=== PATIENT | female | born 1995 | race Caucasian/White ===

== ENCOUNTER 2016-09-29 13:52 | Emergency (ER) | payer OTHER ==
[~2016-09-29] VITALS: Ht 157.5 cm; Wt 52.0 kg
[~2016-09-29 13:52] MED LIST: OMEP10CA2 PO; PREN1TAB49 PO
[2016-09-29 13:55] VITALS: Ht 157.5 cm; Wt 52.0 kg
--- NOTE | 2016-09-29 14:48 | ERD ---
ER Documentation Chief Complaint Date/Time DATE: 09/29/16 TIME: 14:30 Chief Complaint LEFT BREAST PAIN X 1 MONTH HPI 21-year-old female who presents to the emergency department with a primary complaint of right breast pain for about a month and left breast pain for about 2 weeks. She also complains of rashes the right breast with itchiness. Denies headache, loss of consciousness, dizziness, blurry vision, changes in vision, photophobia, facial pain, ear pain, throat pain, difficulty swallowing, neck pain, shoulder pain, chest pain, cough, hemoptysis, abdominal pain, back pain, loss of appetite, nausea, vomiting, hematochezia, diarrhea, constipation, urinary symptoms, , the possibility of being , bladder and bowel incontinences, extremity weakness, extremity tenderness, numbness or tingling sensation, difficulty walking, recent travel, recent exposure to illness, recent antibiotic use in the last 3 months, fever, chills. Allergy: No known drug allergies. PMH: No past medical history. Family medical history: Denies. AO LMP: September 25, 2016. Medications: Denies. Surgery: Left retinal detachment surgery. Primary Social History: store operations associate. Denies smoking, use of alcohol, use of illegal drugs. ROS All systems reviewed and are negative except as per history of present illness. Medications Home Meds Active Scripts Omeprazole* (Prilosec*) 10 Mg Capsule., 10 MG PO BID, #20 CAP Prov:OSMANY RIVERO NP 01/27/15 Reported Medications Vits W-Ca,Fe,Fa(<1MG) () 1 Tab Tablet, 1 TAB PO 10/21/11 Allergies Allergies: Coded Allergies: No Known Drug Allergies (Verified Allergy, Mild, 04/14/10) PMhx/Soc History of Surgery: Yes (RETINA DETACHMENT) Anesthesia Reaction: No Hx Neurological Disorder: No Hx Respiratory Disorders: No Hx Cardiac Disorders: No Hx Psychiatric Problems: No Hx Miscellaneous Medical Probl: No Hx Alcohol Use: No Hx Substance Use: No Hx Tobacco Use: No Smoking Status: Never smoker Physical Exam Vitals Vital Signs Date Time Temp Pulse Resp B/P Pulse Ox O2 Delivery O2 Flow Rate FiO2 09/29/16 13:55 98.4 84 19 124/84 98 Physical Exam CONSTITUTIONAL: Well-appearing; well-nourished; in no apparent distress. HEAD: Normocephalic; atraumatic. EYES: Conjunctiva clear, sclera non-icteric, EOM intact. PERRL Ears: Hearing intact. EACs clear, TMs non-bulging, non-inflamed, translucent & mobile, ossicles normal appearance, No obstructions, no erythema, no discharges Nose: No obstructions. No polyps. No external lesions. Mucosa non-inflamed. No external lesions, septum and turbinates normal. No rhinorrhea. No discharges. Frontal sinus is non-tender to palpation. Maxillary sinus is non-tender to palpation. MOUTH: Moist mucous membranes, no lesion, no obstructions, no vesicles, no thrush, patent airway Throat: Uvula in midline. Right tonsil is +1 with no erythema, no exudate. Left tonsil is +1 with no erythema, no exudate. Tolerating secretions well. Good gag reflex. Patent airway. Neck: Supple, without lesions, bruits, or adenopathy. No mass. Thyroid non- enlarged and non-tender to palpation. CHEST: Symmetrical chest. Respirations even and not labored. No retractions noted. Right breast has visible macular, flaky rashes. No vesicular lesions. No active bleeding. No discharges nipple. Left breast has no rashes/hives/ vesicular lesions. Bilateral breasts no lumps or signs of abscess. Examined with female tutoring clinician named Joy Dorsey RN. CARDIOVASCULAR: Normal S1, S2. RRR. No murmurs, gallops. RESPIRATORY: Normal chest excursion with respiration; breath sounds clear and equal bilaterally; no wheezes, rhonchi, or rales. Breathing even and unlabored. Speaking in clear, full, and complete sentences w/ ease. ABDOMEN: Normal bowel sounds normal. Soft, round, non-distended, non-guarding, no tenderness, no rebound, no organomegaly, no masses, no pulsating abdominal mass. No hernia. No peritoneal signs. : No CVA tenderness. BACK: Symmetrical shoulder. Spine is midline without deformity, tenderness. No evidence of trauma or deformity. PELVIS: Stable pelvis. No evidence of trauma or deformity. MUSCULOSKELETAL: Normal gait and station. No misalignment, asymmetry, crepitation, defects, tenderness, masses, effusions, decreased range of motion, instability, atrophy or abnormal strength or tone in the head, neck, spine, ribs , pelvis or extremities. No calf tenderness. NEUROVASCULAR: Distal pulses are present. Pedal pulse are present, equal, and normal. Capillary refills are < 2 seconds. NEUROLOGIC: Alert and oriented x4. Speaks full and clear sentences. Cranial Nerves II-XII normal. Sensation to pain, touch, and proprioception normal. Grossly unremarkable. No neurologic deficits. Romberg test is negative. PSYCHOLOGICAL: The patients mood and manner are appropriate. No hallucinations , delusions. Not SI. Not HI. Has the capacity to decide for self SKIN: Normal for age and ethnicity; warm; dry; good turgor; no apparent lesions or exudates. No, vesicular lesions, hives, discoloration. Intact. Procedures/MDM Examination: Please see physical examination. Chaperoned by Joy Dorsey RN (female registered nurse). Disease process, medical treatment was explained to the patient and family member. They verbalized understanding and agreed with the diagnostic tests, medical treatment, and follow-up care. Re-evaluation: Denies headache, dizziness, blurry vision, neck pain, shoulder pain, chest pain, abdominal pain. No episode of emesis here in the emergency department. There is no right upper/right lower/left upper/left lower/ epigastric tenderness on light and deep palpation. Negative on [place] sign. Negative on Rov[place] sign. No CVA tenderness. No peritoneal signs. There is no signs of shingles or varicella. No hives. Skin is intact. No neurovascular deficits. No neurological deficits. Consultation: Differential diagnosis: Mastitis versus scabies versus rash versus hives versus shingles versus Medical decision makin-year-old female who presents to the emergency department with a primary complaint of right breast pain for about a month and left breast pain for about 2 weeks. She also complains of rashes the right breast with itchiness. Patient's complaint, patient's history about her complaint, my physical findings, my reevaluation are consistent with my final diagnosis of atopic dermatitis. Medications prescribed are the following: Hydrocortisone cream. Keflex. Benadryl. Patient and family member are made aware of the side effects and adverse reactions of the medications prescribed. Instructed on when to seek emergent and medical attention in case allergic/anaphylactic reactions or severe side effects and or adverse reactions to medications. Patient and family member verbalized understanding. Patient instructed Instructed to follow-up with his PCP in 24-48 hours. Instructed to Call 911 for chest pain, shortness of breath. Advised to come back here in ED as soon as possible for severity of symptoms which includes but not limited to: any new symptoms; shortness of breath/difficulty of breathing; cardiovascular changes; severe gastrointestinal symptoms; signs and symptoms of bleeding and or infection; signs of compartment syndrome/neurovascular changes; neurological changes/deficits. Patient and family member verbalized understanding. Upon discharge, patient is alert and oriented x 4, speaks full and clear sentences, denies pain, has no neurological deficits, has no neurovascular deficits, difficulty of breathing. Breathing even and unlabored. Lung sounds are clear to auscultation. Not in distress. Appears comfortable. Ambulatory with steady gait. Appears satisfied with care provided here in ED. Departure Diagnosis: Primary Impression: Breast pain Additional Impression: Atopic dermatitis Condition: Good Additional Instructions: Patient instructed Instructed to follow-up with his PCP in 24-48 hours. Instructed to Call 911 for chest pain, shortness of breath. Advised to come back here in ED as soon as possible for severity of symptoms which includes but not limited to: any new symptoms; shortness of breath/difficulty of breathing; cardiovascular changes; severe gastrointestinal symptoms; signs and symptoms of bleeding and or infection; signs of compartment syndrome/neurovascular changes; neurological changes/deficits. Patient and family member verbalized understanding. MAKEDA MALLOY September 29, 2016 14:48
[2016-09-29] MEDS ORDERED: BEN25 PO (14:49)
[2016-09-29] MEDS ORDERED: CEPH-443 PO (14:49)
[2016-09-29] MEDS ORDERED: IBUP400T22 PO (14:50)
[2016-09-29] MEDS ORDERED: HYDR28.424 TP (14:50)
[2016-09-29 15:21] VITALS: BP 128/69; PULSE 71; RESP 18
== END 2016-09-29 15:37 | disposition home or self-care (01) ==
LOC: FTE 13:52
DX: N64.4 Mastodynia (principal); L20.9 Atopic dermatitis, unspecified
CPT/HCPCS: 99283

== ENCOUNTER 2017-04-04 17:05 | Emergency (ER) | payer OTHER ==
[~2017-04-04] VITALS: Ht 165.1 cm; Wt 48.8 kg
[~2017-04-04 17:05] MED LIST changes: +BEN25 PO; +CEPH-443 PO; +HYDR28.424 TP; +IBUP400T22 PO
[2017-04-04 17:50] VITALS: Ht 165.1 cm; Wt 48.8 kg
[2017-04-04 19:27] LABS: URINE BLOOD (Dip) POC 1+ (NEGATIVE)
[2017-04-04] MEDS ORDERED: ACETAMINOPHEN 325 MG TAB PO ONE (19:30)
[2017-04-04] MEDS ORDERED: IBUP400T22 PO (20:33)
--- NOTE | 2017-04-04 20:39 | ERD ---
ER Documentation Chief Complaint Chief Complaint vag bleeding, painful urination x3 days HPI This 22-year-old female presents with 3 day history of suprapubic pressure. When she gets pain she has vaginal bleeding with a few clots although she states that it is different from her usual menstrual period. She is due for her menstrual period. She denies . She denies any vaginal discharge denies any burning with urination. She denies any fevers. ROS All systems reviewed and are negative except as per history of present illness. Medications Home Meds Active Scripts Ibuprofen* (Motrin*) 400 Mg Tab, 400 MG PO Q6, #14 TAB Prov:YVES SOMMER MD 04/04/17 Hydrocortisone/Aloe Vera (HYDROCORTISONE PLUS 1% CREAM) 28.4 Gm Cream..g., 28.4 GM TP TID Y for ITCHING for 5 Days Prov:PASILABAN,KLAR F 09/29/16 Ibuprofen* (Motrin*) 400 Mg Tab, 400 MG PO Q8, #30 TAB Prov:PASILABAN,KLAR F 09/29/16 Diphenhydramine Hcl* (Benadryl*) 25 Mg Cap, 25 MG PO Q8 Y for ITCHING/RASH, #30 TAB Prov:PASILABAN,KLAR F 09/29/16 Cephalexin* (Keflex*) 500 Mg Capsule, 500 MG PO BID for 5 Days, CAP Prov:PASILABAN,KLAR F 09/29/16 Omeprazole* (Prilosec*) 10 Mg Capsule.dr, 10 MG PO BID, #20 CAP Prov:OSMANY RIVERO NP 01/27/15 Reported Medications Vits W-Ca,Fe,Fa(<1MG) () 1 Tab Tablet, 1 TAB PO 10/21/11 Allergies Allergies: Coded Allergies: No Known Drug Allergies (Verified Allergy, Mild, 04/14/10) PMhx/Soc History of Surgery: Yes (RETINA DETACHMENT) Anesthesia Reaction: No Hx Neurological Disorder: No Hx Respiratory Disorders: No Hx Cardiac Disorders: No Hx Psychiatric Problems: No Hx Miscellaneous Medical Probl: No Hx Alcohol Use: No Hx Substance Use: No Hx Tobacco Use: No Smoking Status: Never smoker Physical Exam Vitals Vital Signs Date Time Temp Pulse Resp B/P Pulse Ox O2 Delivery O2 Flow Rate FiO2 04/04/17 17:50 98.6 68 18 121/60 98 Physical Exam Const: [] Alert, [id number] per Head: Atraumatic Eyes: Normal Conjunctiva ENT: Normal External Ears, Nose and Mouth. Neck: Full range of motion..~ No meningismus. Resp: Clear to auscultation bilaterally Cardio: Regular rate and rhythm, no murmurs Abd: Soft, suprapubic tenderness., non distended. Normal bowel sounds with no peritoneal signs. Skin: No petechiae or rashes Back: No midline or flank tenderness Ext: No cyanosis, or edema Neur: Awake and alert Psych: Normal Mood and Affect Results 24 hrs Laboratory Tests Test 04/04/17 19:26 Bedside Urine pH (LAB) 7.0 Bedside Urine Protein (LAB) Negative Bedside Urine Glucose (UA) Negative Bedside Urine Ketones (LAB) Negative Bedside Urine Blood 1+ Bedside Urine Nitrite (LAB) Negative Bedside Urine Leukocyte Esterase (L Negative Current Medications Medications (Trade) Dose Ordered Sig/Jos Route PRN Reason Start Time Stop Time Status Last Admin Dose Admin Acetaminophen (Tylenol Tab) 650 mg ONCE ONCE PO 04/04/17 19:30 04/04/17 19:36 DC 04/04/17 19:35 Procedures/MDM Pelvic ultrasound shows no acute findings. There is no evidence of adnexal masses no signs of . HCG is negative. Urine is negative for leukocytes, nitrItes, glucose, blood. Patient is given Tylenol for pain. Patient has pelvic pressure and vaginal bleeding of uncertain etiology. May be dysmenorrhea. Urine was sent for gonorrhea chlamydia. There is no current evidence to suggest appendicitis, acute abdomen, tubo-ovarian abscess, additional emergent causes of presenting complaints. She will discharged home with ibuprofen and further observation at home. She was also given return precautions to return for fevers, vomiting, right lower quadrant pain, new or worsening symptoms. The patient was stable with no new complaints during the ER course. Clinically, there is no current evidence to suggest meningitis, sepsis, acute abdomen, pneumonia, acute coronary syndrome, pulmonary embolism, or any other emergent condition appearing to require further evaluation or hospitalization. The patient should certainly return for any new or worsening symptoms per the aftercare instructions. They should otherwise follow-up with her primary care doctor for reevaluation this week. Departure Diagnosis: Primary Impression: Pelvic pain Condition: Stable Patient Instructions: Pelvic Pain, Unknown Cause Additional Instructions: EXAmInations normal today. Uncertain cause of pain. May be abnormal menstrual period. Recommend further observation at home. Return for fevers, worsening pain, new worsening symptoms or primary care doctor this week. YVES SOMMER MD Apr 04, 2017 20:39
--- NOTE | 2017-04-04 21:23 | RADRPT ---
PROCEDURE: US Pelvis. CLINICAL INDICATION: Vaginal bleeding TECHNIQUE: Multiple sonographic images of the pelvis were obtained utilizing a transabdominal and endovaginal technique. The images were reviewed on a PACS workstation. COMPARISON: None available FINDINGS: Uterus: Normal in size, contour and echogenicity with no evidence for myometrial masses. Size is est imated at 7.8 x 5 x 0.8 cm. Cervix: No abnormalities of significance are seen. Endometrium: Increased in thickness; 17.6 mm. This is possibly related to the patients phase of men struation Right ovary / adnexa: Normal in size estimated at 4.5 x 3.5 x 2.8 cm. No evidence for masses, norm al blood flow on Doppler interrogation. Left ovary/adnexa: Normal in size estimated at 3.6 x 2.9 x 1.9 cm. No evidence for solid masses, no rmal blood flow on Doppler interrogation. Cul-de-sac: Small amount of free fluid. RPTAT:HJJR IMPRESSION: 1. Endometrial thickness of 17.6 mm possibly related to the patients phase of menstruation, no foca l endometrial or myometrial masses are demonstrated. Consider follow-up evaluation. 2. Sonographically normal ovaries and adnexa. 3. Small amount of free fluid in the cul-de-sac possibly physiologic. Physician Johnny Date Time Electronically viewed and signed by Physician Johnny on 04/04/2017 21:22 JR/
[2017-04-04 21:55] VITALS: BP 117/58; PULSE 72; RESP 18; TEMP 98.6
== END 2017-04-04 21:55 | disposition home or self-care (01) ==
LOC: FTE 17:05
DX: R10.2 Pelvic and perineal pain (principal)
CPT/HCPCS: 76830; 76856; 81003; Z7502; Z7610